=== PATIENT | male | born 1980 | race Caucasian/White ===

== ENCOUNTER 2019-02-08 21:28 | Emergency (ER) | payer BC ==
[2019-02-09] MEDS ORDERED: Cyclobenzaprine TAB* 10 MG PO ONE (00:27)
[2019-02-09] MEDS ORDERED: Naproxen TAB* 250 MG PO ONE (00:41)
--- NOTE | 2019-02-09 00:48 | ED ---
HPI Chest Pain - HPI Summary HPI Summary: Complains of pain at junction of left chest and left axilla. Pain has been intermittent times one week. Seen at [place] ED for same 1 week ago, with diagnosis of viral infection. States axilla pain went away 2 days after visit to [place], but returned 3 days ago. Patient denies known trauma, cough, sore throat, HERNANDEZ, nasal congestion, fever, CP, SOB, change in exertion levels, N/V/D, abdominal pain, change in urine, change in BM. Medical history is testicular cancer cleared 15 years ago. Denies cardiac history, history of blood clots, recent surgery or trauma, history of recent long travel, history of immobility, unilateral leg pain. - History of Current Complaint Chief Complaint: EDExtremityUpper Time Seen by Provider: 02/09/19 00:07 Hx Obtained From: Patient, Family/Ordinary Seaman Onset/Duration: Started Days Ago Timing: Intermittent Initial Severity: Mild Current Severity: Mild Pain Intensity: 0 Pain Scale Used: 0-10 Numeric Chest Pain Location: Discrete at:, Left Anterior, Left Lateral Chest Pain Radiates: No Character: Dull/Aching Aggravating Factor(s): Position, Movement Alleviating Factor(s): Nothing Associated Signs and Symptoms: Positive: Chest Pain - Allergy/Home Medications Allergies/Adverse Reactions: Allergies Allergy/AdvReac Type Severity Reaction Status Date / Time No Known Allergies Allergy Verified 02/08/19 21:34 PMH/Surg Hx/FS Hx/Imm Hx Endocrine/Hematology History: Denies: Hx Anticoagulant Therapy Cardiovascular History: Denies: Hx Pacemaker/ICD History: Denies: Hx Dialysis Sensory History: Denies: Hx Eye Prosthesis Opthamlomology History: Denies: Hx Legally Blind EENT History: Denies: Hx Deafness Neurological History: Denies: Hx Dementia Psychiatric History: Denies: Hx Autism - Immunization History Date of Tetanus Vaccine: unknown Infectious Disease History: No Infectious Disease History: Denies: Traveled Outside the [place] in Last 30 Days - Social History Alcohol Use: Daily Alcohol Amount: 8 PACK., Substance Use Type: Reports: None Smoking Status (MU): Heavy Every Day Tobacco Smoker Review of Systems Constitutional: Negative Eyes: Negative ENT: Negative Positive: Chest Pain Respiratory: Negative Gastrointestinal: Negative Genitourinary: Negative Musculoskeletal: Other Skin: Negative Neurological: Negative Psychological: Normal All Other Systems Reviewed And Are Negative: Yes Physical Exam - Summary Physical Exam Summary: Pain located in left pectoralis muscle. Pain reproducible with palpation of pectoralis muscle. No ecchymosis, erythema, swelling, deformity noted. No pain with chest pressure or abduction against resistance. Lung sounds clear to auscultation bilaterally. RRR. Abdomen soft nontender. Triage Information Reviewed: Yes Vital Signs On Initial Exam: Initial Vitals Temp Pulse Resp BP Pulse Ox 99.2 F 103 16 156/114 98 02/08/19 21:30 02/08/19 21:30 02/08/19 21:30 02/08/19 21:30 02/08/19 21:30 Vital Signs Reviewed: Yes Appearance: Positive: Well-Appearing Skin: Positive: Warm Head/Face: Positive: Normal Head/Face Inspection Eyes: Positive: Normal ENT: Positive: Normal ENT inspection Neck: Positive: Supple Respiratory/Lung Sounds: Positive: Clear to Auscultation Cardiovascular: Positive: Normal Abdomen Description: Positive: Nontender Musculoskeletal: Positive: Normal Neurological: Positive: Normal Psychiatric: Positive: Normal AVPU Assessment: Alert - [place] Coma Scale Best Eye Response: 4 - Spontaneous Best Motor Response: 6 - Obeys Commands Best Verbal Response: 5 - Oriented Coma Scale Total: 15 Diagnostics - Vital Signs Vital Signs Temp Pulse Resp BP Pulse Ox 02/08/19 21:30 99.2 F 103 16 156/114 98 - Laboratory Lab Statement: Any lab studies that have been ordered have been reviewed, and results considered in the medical decision making process. Chest Pain Course/Dx - Course Course Of Treatment: Complains of pain at junction of left chest and left axilla. Pain has been intermittent times one week. Seen at [place] ED for same 1 week ago, with diagnosis of viral infection. States axilla pain went away 2 days after visit to [place], but returned 3 days ago. Patient denies known trauma, cough, sore throat, HERNANDEZ, nasal congestion, fever, CP, SOB, change in exertion levels, N/V/D, abdominal pain, change in urine, change in BM. Medical history is testicular cancer cleared 15 years ago. Denies cardiac history, history of blood clots, recent surgery or trauma, history of recent long travel, history of immobility, unilateral leg pain. Physical exam:Pain located in left pectoralis muscle. Pain reproducible with palpation of pectoralis muscle. No ecchymosis, erythema, swelling, deformity noted. No pain with chest pressure or abduction against resistance. Lung sounds clear to auscultation bilaterally. RRR. Abdomen soft nontender. Vital signs within normal limits. Chest x-ray unremarkable. EKG sinus rhythm with early re-pole. Troponin normal. Diagnosis chest wall pain. - Diagnoses Provider Diagnoses: Musculoskeletal pain Discharge - Sign-Out/Discharge Documenting (check all that apply): Patient Departure Patient Received Moderate/Deep Sedation with Procedure: No - Discharge Plan Condition: Stable Disposition: HOME Prescriptions: Cyclobenzaprine TAB* [Flexeril 10 MG TAB*] 10 mg PO TID PRN 7 Days #21 tab PRN Reason: Pain Referrals: Logan Chung DO [Primary Care Provider] - Additional Instructions: Take ibuprofen 600 mg up to 4 times a day. Take Flexeril as directed for muscular pain. Return to the ED for any new or worsening symptoms. - Billing Disposition and Condition Condition: STABLE Disposition: Home
[2019-02-09 05:35] VITALS: BP 163/101
== END 2019-02-09 03:29 | disposition home or self-care (01) ==
LOC: ED 21:28
DX: M79.18 Myalgia, other site (principal); R07.9 Chest pain, unspecified; F17.210 Nicotine dependence, cigarettes, uncomplicated
CPT/HCPCS: 36415; 71046; 84484; 93005; 99282; A9270-GY

== ENCOUNTER 2019-03-15 14:21 | Emergency (ER) | payer BC ==
--- NOTE | 2019-03-15 14:42 | ED ---
HPI Chest Pain - HPI Summary HPI Summary: A 38 y/o M presents to ED with c/o L-anterior CP onset past few days. He describes it as burning and it radiates to his neck and L axilla. Associated sx : some episodes of epigastric pain, bilat ankle discomfort, not sleeping well - he says he'll "jerk" and "convulse" right as he's falling asleep, cough onset last night. Denies pedal edema. He's mostly quit drinking a few weeks ago, and has been feeling lightheaded often since. He saw his PCP who noticed his elevated BP at the time. Pt felt he had "stomach flu" about a month ago, he was having abd pain, bloating but that has mostly resolved. Pt sees Dr. Whitehead, PCP, at [place]. No daily medication. Smoker. - History of Current Complaint Chief Complaint: EDChestPainROMI Time Seen by Provider: 03/15/19 14:35 Hx Obtained From: Patient, Family/Furnace Fitter Onset/Duration: Started Days Ago, Atraumatic, Still Present Timing: Constant, Lasting Days Initial Severity: Mild Current Severity: Mild Pain Intensity: 3 Pain Scale Used: 0-10 Numeric Chest Pain Location: Left Anterior Chest Pain Radiates: Yes Chest Pain Radiates To:: Neck, Other - pos: L axilla Character: Burning Associated Signs and Symptoms: Positive: Chest Pain, Cough, Abdominal Pain - epigastric, Other: - pos: bilat ankle "discomfort". Negative: Edema - neg: pedal edema - Allergy/Home Medications Allergies/Adverse Reactions: Allergies Allergy/AdvReac Type Severity Reaction Status Date / Time No Known Allergies Allergy Verified 03/15/19 14:28 Home Medications: Home Medications Acetaminophen [Tylenol Extra Strength] 500 mg PO Q6HR PRN 03/15/19 [History Confirmed 03/15/19] PMH/Surg Hx/FS Hx/Imm Hx Previously Healthy: No Endocrine/Hematology History: Denies: Hx Anticoagulant Therapy Cardiovascular History: Denies: Hx Pacemaker/ICD History: Reports: Other Problems/Disorders - testicular CA Denies: Hx Dialysis Sensory History: Denies: Hx Eye Prosthesis, Hx Legally Blind, Hx Deafness Opthamlomology History: Denies: Hx Eye Prosthesis, Hx Legally Blind Neurological History: Denies: Hx Dementia Psychiatric History: Denies: Hx Autism - Immunization History Date of Tetanus Vaccine: unknown Infectious Disease History: No Infectious Disease History: Denies: Traveled Outside the [place] in Last 30 Days - Family History Known Family History: Positive: Other - Uncle: Марина Schmidt'paulina Negative: Cardiac Disease, Diabetes - Social History Occupation: Employed Full-time Lives: Alone Alcohol Use: Daily Alcohol Amount: 8 PACK., Hx Substance Use: No Substance Use Type: Reports: None Hx Tobacco Use: Yes Smoking Status (MU): Heavy Every Day Tobacco Smoker Review of Systems Positive: Other - pos: not sleeping Positive: Chest Pain Positive: Abdominal Pain Musculoskeletal: Other - pos: bilat ankle "discomfort" Negative: Edema Neurological: Other - pos: lightheaded All Other Systems Reviewed And Are Negative: Yes Physical Exam - Summary Physical Exam Summary: Appearance: Well-appearing, Well-nourished, lying in bed comfortably Skin: Warm, dry, no obvious rash Eyes: sclera anicteric, no conjunctival pallor ENT: mucous membranes moist, pharynx appears normal Neck: Supple, nontender Respiratory: Clear to auscultation, no signs of respiratory distress Cardiovascular: Normal S1, S2. No murmurs. Normal distal pulses in tibial and radial bilaterally. Abdomen: Soft, nontender, normal active bowel sounds present Musculoskeletal: Normal, Strength/ROM Intact Neurological: A&Ox3, awake and alert, mentation is normal, speech is fluent and appropriate Psychiatric: affect is normal, does not appear anxious or depressed Triage Information Reviewed: Yes Vital Signs On Initial Exam: Initial Vitals Temp Pulse Resp BP Pulse Ox 98.8 F 88 18 165/110 100 03/15/19 14:25 03/15/19 14:25 03/15/19 14:25 03/15/19 14:25 03/15/19 14:25 Vital Signs Reviewed: Yes Diagnostics - Vital Signs Vital Signs Temp Pulse Resp BP Pulse Ox 03/15/19 14:25 98.8 F 88 18 165/110 100 - Laboratory Lab Statement: Any lab studies that have been ordered have been reviewed, and results considered in the medical decision making process. - EKG 1436 Cardiac Rate: NL - 89 bpm EKG Rhythm: Sinus Rhythm Summary of EKG Findings: probably LVH; ST elevation probable normal early repol Chest Pain Course/Dx - Course Course Of Treatment: Pt is a 38 y/o M presenting with L-anterior CP onset the past few days. He describes it as burning and it radiates to his neck and L axilla. EKG shows NSR with LVH and ST elevation, probably normal early repol. Trop is 0.00. Will discharge patient home. - Diagnoses Provider Diagnoses: GERD (gastroesophageal reflux disease) Discharge - Sign-Out/Discharge Documenting (check all that apply): Patient Departure - DC Patient Received Moderate/Deep Sedation with Procedure: No - Discharge Plan Condition: Good Disposition: HOME Prescriptions: Pantoprazole TAB * [Protonix TAB*] 40 mg PO DAILY #30 tab Patient Education Materials: Gastroesophageal Reflux Disease (ED) Referrals: Logan Chung DO [Primary Care Provider] - 1 Week - Billing Disposition and Condition Condition: GOOD Disposition: Home - Attestation Statements Document Initiated by Emani: Yes Documenting Scribe: Mary Campbell Provider For Whom Scribe is Documenting (Include Credential): Dr. Raj Braun MD Scribe Attestation: Mary Phelan scribed for Dr. Raj Braun MD on 03/15/19 at 1915. Scribe Documentation Reviewed: Yes Provider Attestation: The documentation as recorded by the Mary castrejon accurately reflects the service I personally performed and the decisions made by me, Dr. Raj Braun MD Status of Scribe Document: Viewed
[2019-03-15 16:06] VITALS: BP 138/87
== END 2019-03-15 16:04 | disposition home or self-care (01) ==
LOC: ED 14:21
DX: K21.9 Gastro-esophageal reflux disease without esophagitis (principal); R07.89 Other chest pain; R05 Cough; R10.13 Epigastric pain; F17.210 Nicotine dependence, cigarettes, uncomplicated; R42 Dizziness and giddiness; Z85.47 Personal history of malignant neoplasm of testis
CPT/HCPCS: 36415; 84484; 93005; 99282